=== PATIENT | female | born 1950 | race Caucasian/White ===

== ENCOUNTER → 2016-03-14 | Outpatient (CLI) | payer OTHER ==
[~2016-03-14] MED LIST: CYMBALTA60 MG PO; IRON325 MG PO; LAMICTAL100 MG PO; LITHIUM CARBON300 M1 PO; OMEPRAZOLE20 M1 PO; PROPRANOLOL HCL20 MG PO; RISPERIDONE1 MG PO; ZYRTEC ALLERGY10 MG PO
--- NOTE | 2016-03-14 12:15 | DIAGNOSTIC IMAGING REPORT ---
PROCEDURE: XR CHEST 2 VIEW INDICATION: SOB TECHNIQUE: PA and lateral views. COMPARISON: Chest 02/26 and 02/06/2016 FINDINGS: Further improvement in the bibasilar infiltrates. Heart and mediastinum are normal. Thorax is normal. IMPRESSION: 1. Further decrease in the bibasilar infiltrates.
== END ==
LOC: XR SRH 11:38
DX: R91.8 Other nonspecific abnormal finding of lung field (principal); R53.83 Other fatigue; D64.9 Anemia, unspecified
CPT/HCPCS: 90047; 90074; 92235; 95059